=== PATIENT | male | born 1960 | race American Indian/Alaskan Native ===

== ENCOUNTER 2018-05-08 17:12 | Emergency (ER) | payer SELFPAY ==
[2018-05-08 17:26] VITALS: BP 151/91
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
[2018-05-08] MEDS ORDERED: XYLOCAINE 2% INFILTRATI ONE ×2 (21:08→22:10)
[2018-05-08] MEDS ORDERED: BOOSTRIX IM ONE (21:51)
[2018-05-08] MEDS ORDERED: MOTRIN PO ONE (21:51)
[2018-05-08] MEDS: XYLOCAINE 1% 20 mL INFILTRATI ONE ×2 (22:08→22:10)
== END 2018-05-08 22:25 | disposition home or self-care (01) ==
LOC: EDBD → ED 17:12
DX: S61.214A Laceration without foreign body of right ring finger without damage to nail, initial encounter (principal); F17.200 Nicotine dependence, unspecified, uncomplicated; F12.10 Cannabis abuse, uncomplicated; W25.XXXA Contact with sharp glass, initial encounter; Y93.89 Activity, other specified; Y99.8 Other external cause status; Y92.89 Other specified places as the place of occurrence of the external cause
CPT/HCPCS: 90471; 90715; 99282

== ENCOUNTER 2019-12-29 21:23 | Emergency (ER) | payer SELFPAY ==
[2019-12-30] MEDS ORDERED: ACETAMINOPHEN 325 MG TAB PO ONE (00:33)
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
--- NOTE | 2019-12-30 01:08 | XRay Report ---
CHEST 2 VIEWS INDICATION / CLINICAL INFORMATION: cough, fever. COMPARISON: None available. FINDINGS: SUPPORT DEVICES: None. HEART / MEDIASTINUM: The thoracic aorta is tortuous and the ascending thoracic aorta may be dilated. LUNGS / PLEURA: No significant pulmonary or pleural abnormality. No pneumothorax. ADDITIONAL FINDINGS: No significant additional findings. IMPRESSION: The thoracic aorta is tortuous and the ascending thoracic aorta may be dilated. No acute pulmonary or pleural abnormality Signer Name: Alonzo Vazquez MD FACR Signed: 12/30/2019 1:04 AM Workstation Name: [id number] [facility] [id number]
[2019-12-30 01:44] LABS: Eosinophils # (Auto) 0.2 K/mm3 (0.0-0.4); Eosinophils % (Auto) 5.4 % (0.0-4.3); Hematocrit 43.5 % (35.5-45.6); Hemoglobin 14.5 gm/dl (11.8-15.2); Lymphocytes # (Auto) 0.8 K/mm3 (1.2-5.4); Lymphocytes % (Auto) 21.3 % (13.4-35.0); Mean Corpuscular HGB Conc 33 % (32-34); Mean Corpuscular Volume 89 fl (84-94); Monocytes # (Auto) 0.4 K/mm3 (0.0-0.8); Monocytes % (Auto) 9.5 % (0.0-7.3); Platelet Count 141 K/mm3 (140-440); Red Cell Distribution Width 15.2 % (13.2-15.2)
[2019-12-30 01:55] LABS: Alanine Aminotransferase 32 units/L (7-56); Albumin 3.7 g/dL (3.9-5); BUN/Creatinine Ratio 9; Blood Urea Nitrogen 9 mg/dL (9-20); Calcium 8.6 mg/dL (8.4-10.2); Hemolysis Index 16
[2019-12-30 02:26] VITALS: BP 122/88
== END 2019-12-30 02:35 | disposition home or self-care (01) ==
LOC: ED 21:23
DX: R05 Cough (principal); R50.9 Fever, unspecified; R11.0 Nausea; F17.200 Nicotine dependence, unspecified, uncomplicated; F12.10 Cannabis abuse, uncomplicated; Z98.890 Other specified postprocedural states
CPT/HCPCS: 36415; 71046; 80053; 85025; 87400